=== PATIENT | male | born 1935 | race Hispanic/Latino ===

== ENCOUNTER 2018-10-21 10:45 | Observation (INO) | payer MEDICARE ==
[~2018-10-21] VITALS: Ht 157.5 cm; Wt 86.6 kg
[2018-10-21 12:29] LABS: BASOPHILS % (AUTO) 0.5 % (0.0-5.0); EOSINOPHILS % (AUTO) 4.4 % (0.0-8.0); HEMATOCRIT 37.2 % (42-54); LYMPHOCYTES % (AUTO) 37.9 % (21.0-51.0); MEAN CORPUSCULAR HGB CONC 34.2 g/dL (32.0-36.0); MEAN CORPUSCULAR VOLUME 93.7 fL (79-99); MONOCYTES % (AUTO) 14.5 % (3.0-13.0); NEUTROPHILS % (AUTO) 42.7 % (40.0-77.0); PLATELET COUNT (AUTO) 230 K/uL (130-400); RED BLOOD CELL COUNT(AUTO) 3.97 MIL/uL (4.50-6.20); RED CELL DISTRIBUTION WIDTH 15.2 % (11.0-15.5); WHITE BLOOD COUNT (AUTO) 5.1 K/uL (4.8-10.8)
[2018-10-21 12:44] LABS: INR 1.05 (0.85-1.15); PARTIAL THROMBOPLASTIN TIME 30.3 SEC (26.3-35.5)
[2018-10-21] MEDS ORDERED: MAG HYDROX/AL HYDROX/SIMETH ES 30 ML SUSP UDCUP PO PRN (14:45)
[2018-10-21] MEDS ORDERED: DIPHENHYDRAMINE HCL 25 MG CAPSULE PO PRN (14:45)
[2018-10-21] MEDS ORDERED: ZOLPIDEM TARTRATE 5 MG TAB PO PRN (14:45)
[2018-10-21] MEDS ORDERED: ONDANSETRON HCL 4 MG/2 ML VIAL IV PRN (14:45)
[2018-10-21] MEDS ORDERED: GUAIFENESIN-DM 200/20 MG 10 ML PO PRN (14:45)
[2018-10-21] MEDS ORDERED: MORPHINE SULFATE 2 MG/ML 1ML SYG IV PRN (14:45)
[2018-10-21] MEDS ORDERED: ACETAMINOPHEN 325 MG TAB PO PRN ×2 (14:45)
[2018-10-21] MEDS ORDERED: HYDRALAZINE HCL 20 MG/ML VIAL IV PRN (14:45)
[2018-10-21] MEDS ORDERED: LACTULOSE 20 GM/30 ML UDCUP PO PRN (14:45)
[2018-10-21 15:09] LABS: CREATININE 1.1 mg/dL (0.5-1.5); POTASSIUM 4.5 mmol/L (3.5-5.1)
[2018-10-21 15:27] LABS: ALBUMIN 2.9 g/dL (3.5-5.0); BILIRUBIN,TOTAL 0.6 mg/dL (0.2-1.0); TOTAL PROTEIN, SERUM 6.6 g/dL (6.0-8.3)
[2018-10-21] MEDS ORDERED: MORPHINE SULFATE 2 MG/ML 1ML SYG ONE (18:24)
[2018-10-21 19:06] LABS: APPEARANCE,URINE CLEAR (CLEAR); BILIRUBIN,URINE NEGATIVE (NEGATIVE); COLOR,URINE YELLOW (YELLOW); GLUCOSE, URINE (UA) NEGATIVE (NEGATIVE); KETONES,URINE NEGATIVE (NEGATIVE); LEUKOCYTE ESTERASE ,URINE TRACE (NEGATIVE); NITRATE,URINE NEGATIVE (NEGATIVE); OCCULT BLOOD,URINE NEGATIVE (NEGATIVE); PROTEIN,URINE NEGATIVE (NEGATIVE); UROBILINOGEN,URINE 0.2 mg/dL (0.2-1.0)
[2018-10-21 19:13] LABS: AMORPHOUS SEDIMENT,UR Few /LPF (None Seen); BACTERIA,URINE Moderate /HPF (None Seen); RBC,URINE None Seen /HPF (0-1); SQUAMOUS EPITHELIAL CELL,UR 0-2 /HPF (0-2); WBC,URINE 0-1 /HPF (0-1)
[2018-10-21 20:50] VITALS: BP 136/60
[2018-10-21] MEDS ORDERED: TAMS0.4C32 PO (21:33)
[2018-10-21] MEDS ORDERED: IBUP-2070 PO (21:33)
[2018-10-21] MEDS ORDERED: ACET325T51 PO (21:33)
[2018-10-21] MEDS ORDERED: METO25TA6 PO (21:33)
[2018-10-21] MEDS ORDERED: ENAL10TA PO (21:33)
[2018-10-21] MEDS ORDERED: FINA5TAB41 PO (21:33)
[2018-10-21] MEDS ORDERED: LOVA40TA2 PO (21:33)
[2018-10-21] MEDS ORDERED: FLUT16H NASAL (21:33)
[2018-10-21] MEDS ORDERED: TRAMADOL HCL 50 MG TABLET PO PRN (21:45)
[2018-10-21 23:54] VITALS: BP 178/89
[2018-10-22 04:00] VITALS: BP 144/74
[2018-10-22 05:33] LABS: BASOPHILS % (AUTO) 0.5 % (0.0-5.0); EOSINOPHILS % (AUTO) 4.8 % (0.0-8.0); HEMATOCRIT 36.8 % (42-54); LYMPHOCYTES % (AUTO) 36.4 % (21.0-51.0); MEAN CORPUSCULAR HEMOGLOBIN 32.3 pg (27.0-33.0); MEAN CORPUSCULAR HGB CONC 34.6 g/dL (32.0-36.0); MEAN CORPUSCULAR VOLUME 93.2 fL (79-99); MONOCYTES % (AUTO) 12.6 % (3.0-13.0); NEUTROPHILS % (AUTO) 45.7 % (40.0-77.0); NUCLEATED RED BLOOD CELLS 0.1 % (0.0-0.19); PLATELET COUNT (AUTO) 230 K/uL (130-400); RED BLOOD CELL COUNT(AUTO) 3.95 MIL/uL (4.50-6.20); RED CELL DISTRIBUTION WIDTH 14.8 % (11.0-15.5); WHITE BLOOD COUNT (AUTO) 5.8 K/uL (4.8-10.8)
[2018-10-22 05:34] LABS: HEMOGLOBIN A1C 5.6 % (4.0-6.0)
[2018-10-22 05:37] LABS: INR 1.02 (0.85-1.15); PARTIAL THROMBOPLASTIN TIME 29.9 SEC (26.3-35.5); PROTHROMBIN TIME 10.7 SEC (9.6-11.6)
[2018-10-22 05:50] LABS: CREATININE 1.2 mg/dL (0.5-1.5); MAGNESIUM 2.1 mg/dL (1.80-2.40); POTASSIUM 4.3 mmol/L (3.5-5.1); THYROID STIMULATING HORMONE 3.87 uIU/mL (0.36-3.74)
[2018-10-22 05:54] LABS: B-TYPE NATRIURETIC PEPTIDE 42 pg/mL (0-100)
[2018-10-22 07:30] VITALS: BP 165/73
[2018-10-22 11:00] VITALS: BP 113/57
[2018-10-22 16:00] VITALS: BP 146/83
--- NOTE | 2018-10-22 16:05 | NUR ---
REPORT GIVEN TO MONICA BROOKS LVN FROM [facility]. REPORTED WILL CALL BACK WHEN PATIENT IS READY TO BE PICKED UP STILL NEEDS TO PLACE ORDERS AND DISCHARGE PT, MONICA VERBALIZED UNDERSTANDING. PT IS BEING DISCHARGED BACK TO [facility] TODAY PER DR. ADAMS. WILL CONTINUE CARRY OUT ORDERS AND DISCHARGE PATIENT ORDERED BY DOCTOR.
== END 2018-10-22 19:00 ==
LOC: EDH 10:45 → EDHIP 14:30 → INTOOBSV 14:30 → 4BH 20:29
PROVIDERS: ADMIT Internal Medicine; ATTEND Internal Medicine
DX: S72.122A Displaced fracture of lesser trochanter of left femur, initial encounter for closed fracture (principal); S30.0XXA Contusion of lower back and pelvis, initial encounter; E78.5 Hyperlipidemia, unspecified; I10 Essential (primary) hypertension; N40.0 Benign prostatic hyperplasia without lower urinary tract symptoms; F03.90 Unspecified dementia, unspecified severity, without behavioral disturbance, psychotic disturbance, mood disturbance, and anxiety; F19.90 Other psychoactive substance use, unspecified, uncomplicated; W19.XXXA Unspecified fall, initial encounter; Y93.89 Activity, other specified; Y92.89 Other specified places as the place of occurrence of the external cause; Y99.8 Other external cause status; Z79.899 Other long term (current) drug therapy
CPT/HCPCS: 36415 ×2; 71045; 72192; 73521; 80048; 80053; 80061; 81001; 83036; 83735; 83880; 84100; 84443; 85025 ×2; 85610 ×2; 85730 ×2; 93005; 93306; 99284; G0378 ×28